=== PATIENT | female | born 1965 | race Caucasian/White ===

== ENCOUNTER 2021-09-02 09:45 | Outpatient (CLI) | payer OTHER, SELFPAY ==
[2021-09-02 14:21] LABS: Chloride* 106 mmol/L (96-114); Potassium* 4.5 mmol/L (3.6-5.1); Sodium* 137 mmol/L (135-149)
[2021-09-02 14:24] LABS: Blood Urea Nitrogen* 16 mg/dL (7-30); Carbon Dioxide* 24 mmol/L (20-32); Cholesterol* 191 mg/dL (90-199); Creatinine* 0.8 mg/dL (0.5-1.5); Estimated Glomerular Filt Rate 86 ml/min; Glucose* 96 mg/dL (60-115)
[2021-09-02 14:25] LABS: Calcium* 9.2 mg/dL (8.4-10.6); HDL Cholesterol* 46 mg/dL (>=50); LDL Cholesterol Calculated 129 mg/dL (<100); Triglycerides* 78 mg/dL (40-149)
== END 2021-09-02 09:46 | disposition home or self-care (01) ==
PROVIDERS: PCP Family Medicine; Visit Provider Family Medicine
DX: Z01.419 Encounter for gynecological examination (general) (routine) without abnormal findings (principal); E03.9 Hypothyroidism, unspecified; I10 Essential (primary) hypertension; Z12.4 Encounter for screening for malignant neoplasm of cervix; Z13.6 Encounter for screening for cardiovascular disorders
CPT/HCPCS: 80048; 80061; 84443; 87624; 88175

== ENCOUNTER 2021-11-10 08:08 | Outpatient (CLI) | payer OTHER, SELFPAY ==
--- NOTE | 2021-11-10 08:15 | CRLHL7_ITS ---
For Patients: As a result of the Century Cures Act, medical imaging exams and procedure reports are released immediately into your electronic medical record. You may view this report before your referring provider. If you have questions, please contact your health care provider. BILATERAL SCREENING MAMMOGRAM WITH COMPUTER-AIDED DETECTION TECHNIQUE: CC and MLO views were obtained. These mammographic images have been obtained using full-field digital technique. These mammographic images were interpreted with the benefit of computer-aided detection. COMPARISON FILM: 11/29/18, 10/27/17, 06/25/16. FINDINGS: There are scattered areas of fibroglandular density IMPRESSION: There is no radiographic evidence for malignancy. ASSESSMENT: BI-RADS Category 1: Negative RECOMMENDATION: Routine screening mammogram in 1 year. A lay language report of this examination will be provided to the patient. Rosalee Sandra M.D. Diagnostic/Breast Radiologist [email or web address] PJ/Dictated by: Rosalee Sandra MD @ 11/10/2021 8:40:00 AM (Electronically Signed)
== END 2021-11-10 08:09 | disposition home or self-care (01) ==
LOC: MAMMO 08:09
PROVIDERS: PCP Family Medicine; Visit Provider Family Medicine
DX: Z12.31 Encounter for screening mammogram for malignant neoplasm of breast (principal)
CPT/HCPCS: 77067

== ENCOUNTER 2022-11-16 08:43 | Outpatient (CLI) | payer OTHER, SELFPAY | END 2022-11-16 08:44 | disposition home or self-care (01) | PROVIDERS: PCP Family Medicine; Visit Provider Family Medicine | DX: Z00.00 Encounter for general adult medical examination without abnormal findings (principal); I10 Essential (primary) hypertension; E03.9 Hypothyroidism, unspecified; E66.9 Obesity, unspecified; Z13.6 Encounter for screening for cardiovascular disorders | CPT/HCPCS: 80048; 80061; 84443 ==

== ENCOUNTER 2022-12-20 11:17 | Outpatient (CLI) | payer OTHER, SELFPAY ==
--- NOTE | 2022-12-20 11:30 | CRLHL7_ITS ---
For Patients: As a result of the Cures Act, medical imaging exams and procedure reports are released immediately into your electronic medical record. You may view this report before your referring provider. If you have questions, please contact your health care provider. BILATERAL SCREENING MAMMOGRAM WITH COMPUTER-AIDED DETECTION AND TOMOSYNTHESIS TECHNIQUE: CC and MLO views were obtained. These mammographic images have been obtained using full-field digital technique. These mammographic images were interpreted with the benefit of computer-aided detection. Breast tomosynthesis was used in this interpretation. COMPARISON FILM: 11/10/21, 11/29/18, 10/27/17. FINDINGS: There are scattered areas of fibroglandular density. IMPRESSION: There is no radiographic evidence for malignancy. ASSESSMENT: BI-RADS Category 1: Negative RECOMMENDATION: Routine screening mammogram in 1 year. A lay language report of this examination will be provided to the patient. INOCENTE LEVI M.D. Diagnostic Radiologist [email or web address] Transcribed: 12/20/2022, 5:[address]/Dictated by: Inocente Levi MD @ 12/20/2022 1:30:00 PM (Electronically Signed)
== END 2022-12-20 11:18 | disposition home or self-care (01) ==
LOC: MAMMO 11:17
PROVIDERS: PCP Family Medicine; Visit Provider Family Medicine
DX: Z12.31 Encounter for screening mammogram for malignant neoplasm of breast (principal)
CPT/HCPCS: 77063; 77067

== ENCOUNTER 2024-01-13 13:49 | Outpatient (CLI) | payer OTHER, SELFPAY | END 2024-01-13 13:50 | disposition home or self-care (01) | PROVIDERS: PCP Family Medicine; Visit Provider Family Medicine | DX: E03.9 Hypothyroidism, unspecified (principal); I10 Essential (primary) hypertension | CPT/HCPCS: 80048; 84439; 84443 ==

== ENCOUNTER 2024-10-15 08:11 | Outpatient (CLI) | payer OTHER, SELFPAY | END 2024-10-15 08:12 | disposition home or self-care (01) | LOC: NFLDREF 10-18 08:22 | PROVIDERS: PCP Family Medicine; Referring Provider Family Medicine; Visit Provider Family Medicine | DX: E03.9 Hypothyroidism, unspecified (principal) | CPT/HCPCS: 84439; 84443 ==